=== PATIENT | male | born 1965 | race Hispanic/Latino ===

== ENCOUNTER 2020-12-16 09:00 | Inpatient (IN) | payer OTHER ==
[~2020-12-16] VITALS: Ht 170.2 cm; Wt 97.2 kg
[2020-12-16 09:50] LABS: BASOPHILS % (AUTO) 0.6 % (0.0-5.0); EOSINOPHILS % (AUTO) 10.7 % (0.0-8.0); HEMATOCRIT 41.5 % (42-54); LYMPHOCYTES % (AUTO) 26.9 % (21.0-51.0); MEAN CORPUSCULAR HEMOGLOBIN 33.3 pg (27.0-33.0); MEAN CORPUSCULAR HGB CONC 35.2 g/dL (32.0-36.0); MEAN CORPUSCULAR VOLUME 94.7 fL (79-99); MONOCYTES % (AUTO) 9.5 % (3.0-13.0); NEUTROPHILS % (AUTO) 51.9 % (40.0-77.0); PLATELET COUNT (AUTO) 197 K/uL (130-400); RED BLOOD CELL COUNT(AUTO) 4.38 MIL/uL (4.50-6.20); RED CELL DISTRIBUTION WIDTH 13.7 % (11.0-15.5); WHITE BLOOD COUNT (AUTO) 8.1 K/uL (4.8-10.8)
[2020-12-16 09:55] LABS: APPEARANCE,URINE Clear (CLEAR); BILIRUBIN,URINE Negative (NEGATIVE); COLOR,URINE Yellow (YELLOW); GLUCOSE, URINE (UA) Negative (NEGATIVE); KETONES,URINE Negative (NEGATIVE); LEUKOCYTE ESTERASE ,URINE Negative (NEGATIVE); NITRATE,URINE Negative (NEGATIVE); OCCULT BLOOD,URINE Negative (NEGATIVE); PH,URINE 6.5 (5.0-8.0); PROTEIN,URINE Negative (NEGATIVE)
[2020-12-16 09:58] LABS: CREATININE 1.2 mg/dL (0.5-1.5)
[2020-12-16 10:01] LABS: INR 0.96 (0.85-1.15); PROTHROMBIN TIME 10.5 SEC (9.6-11.6)
[2020-12-20 08:55] VITALS: BP 125/79
[2020-12-20] MEDS ORDERED: ALLO300T2 PO (10:12)
[2020-12-20] MEDS ORDERED: CLOP75TA32 PO (10:12)
[2020-12-20] MEDS ORDERED: IBUP-2077 PO (10:12)
[2020-12-20] MEDS ORDERED: SIMV-43 PO (10:12)
[2020-12-20] MEDS ORDERED: AEC81 PO (10:12)
[2020-12-20] MEDS ORDERED: LISI1TAB51 PO (10:12)
[2020-12-20] MEDS ORDERED: ACET1TAB25 PO (10:12)
[2020-12-21] VITALS (22 sets, daily range): BP systolic 89–117; BP diastolic 51–77
[2020-12-21] MEDS ORDERED: LACTATED RINGERS 1000ML 1,000 ML IV ONE (10:39)
[2020-12-21] MEDS: CLINDAMYCIN 900 MG/D5% WATER 50 ML IV SCH ×2 (11:00→16:47)
[2020-12-21] MEDS ORDERED: PROPOFOL 10 MG/ML 20ML VIAL IV ONE (13:45)
[2020-12-21] MEDS ORDERED: SUCCINYLCHOLINE CHLORIDE 20 MG/ML 10 ML VIAL ONE (13:45)
[2020-12-21] MEDS ORDERED: LIDOCAINE PF 2% 5ML ABBOJECT ONE (13:45)
[2020-12-21] MEDS ORDERED: ROCURONIUM 10MG/1ML SYR 10 MG/ML ML ONE ×2 (13:46→17:28)
[2020-12-21] MEDS ORDERED: ROPIVACAINE 0.5% 5MG/ML 30ML IJ ONE (13:49)
[2020-12-21] MEDS ORDERED: METOCLOPRAMIDE 10 MG/2 ML VIAL ONE (14:09)
[2020-12-21] MEDS ORDERED: ACETAMINOPHEN EXTRA STRENGTH 500 MG TABLET ONE (14:09)
[2020-12-21] MEDS ORDERED: CELECOXIB 200 MG CAP ONE (14:10)
[2020-12-21] MEDS ORDERED: CLINDAMYCIN PHOSPHATE 150 MG/ML 6ML VIAL ONE (14:52)
[2020-12-21] MEDS ORDERED: FENTANYL CITRATE PF 50 MCG/1 ML 2ML VIAL ONE ×2 (16:36→19:11)
[2020-12-21] MEDS ORDERED: MIDAZOLAM HCL 1 MG/ML 2ML VIAL ONE (16:36)
[2020-12-21] MEDS ORDERED: EPHEDRINE SULFATE 50 MG/ML AMPULE ONE (16:56)
[2020-12-21] MEDS ORDERED: CLINDAMYCIN PHOSPHATE 150 MG/ML 6ML VIAL IJ ONE (17:29)
[2020-12-21] MEDS ORDERED: PHENYLEPHRINE HCL 10 MG/ML 1ML VIAL IV ONE (18:50)
[2020-12-21] MEDS ORDERED: ONDANSETRON HCL 4 MG/2 ML VIAL ONE (18:58)
[2020-12-21] MEDS ORDERED: NEOSTIGMINE 5MG/5ML SYR IV ONE (18:58)
[2020-12-21] MEDS ORDERED: GLYCOPYRROLATE 1 MG/5 ML SYRINGE ONE (18:58)
[2020-12-21] MEDS: ACETAMINOPHEN EXTRA STRENGTH 500 MG TABLET PO SCH (19:15)
[2020-12-21] MEDS ORDERED: LIDOCAINE HCL-MPF 1% 2ML VIAL IV PRN (19:15)
[2020-12-21] MEDS ORDERED: POTASSIUM CHLORIDE 20MEQ/100ML 100 ML IV PRN (19:15)
[2020-12-21] MEDS ORDERED: FERROUS FUMARATE 324 MG TABLET PO PRN (19:15)
[2020-12-21] MEDS ORDERED: POTASSIUM CHLORIDE 20 MEQ ERTAB PO PRN (19:15)
[2020-12-21] MEDS ORDERED: ONDANSETRON HCL 4 MG/2 ML VIAL IVP PRN (19:15)
[2020-12-21] MEDS: SODIUM CHLORIDE 0.9% 1000ML 1,000 ML IV SCH (19:15)
[2020-12-21] MEDS ORDERED: OXYCODONE HCL 5 MG TAB PO PRN (19:15)
[2020-12-21] MEDS ORDERED: POTASSIUM CHLORIDE 10% ELIXIR 20 MEQ/15 ML UDCUP PO PRN (19:15)
[2020-12-21] MEDS ORDERED: TEMAZEPAM 15 MG CAPSULE PO PRN (19:15)
[2020-12-21] MEDS ORDERED: DiphenhydrAMINE HCL 50 MG/ML VIAL IVP PRN (19:15)
[2020-12-21] MEDS ORDERED: MEPERIDINE-PF 25 MG/ML SYG ONE ×2 (20:14→20:25)
[2020-12-21] MEDS: CELECOXIB 200 MG CAP PO SCH (21:40)
[2020-12-21] MEDS: FAMOTIDINE 20MG TAB 20 MG TAB PO SCH (21:40)
[2020-12-21] MEDS: PREGABALIN 25 MG CAP PO SCH (21:40)
[2020-12-21] MEDS: SIMVASTATIN 20 MG TABLET PO SCH (21:57)
[2020-12-21] MEDS: CLINDAMYCIN 900 MG/D5% WATER 50 ML IVPB SCH (23:37)
[2020-12-22] VITALS: BP 98/69
[2020-12-22] MEDS: ACETAMINOPHEN EXTRA STRENGTH 500 MG TABLET PO SCH ×3 (02:16→20:29)
[2020-12-22 03:59] LABS: HEMATOCRIT 36.4 % (42-54); MEAN CORPUSCULAR HEMOGLOBIN 33.2 pg (27.0-33.0); MEAN CORPUSCULAR HGB CONC 33.8 g/dL (32.0-36.0); MEAN CORPUSCULAR VOLUME 98.1 fL (79-99); RED BLOOD CELL COUNT(AUTO) 3.71 MIL/uL (4.50-6.20); RED CELL DISTRIBUTION WIDTH 13.8 % (11.0-15.5); WHITE BLOOD COUNT (AUTO) 14.4 K/uL (4.8-10.8)
[2020-12-22 04:07] LABS: CREATININE 2.5 mg/dL (0.5-1.5); POTASSIUM 4.1 mmol/L (3.5-5.1)
[2020-12-22] MEDS: SODIUM CHLORIDE 0.9% 1000ML 1,000 ML IV SCH ×2 (04:16→15:15)
[2020-12-22] MEDS: OXYCODONE HCL 5 MG TAB PO PRN ×2 (05:12→23:48)
[2020-12-22] MEDS: TRAMADOL HCL 50 MG TABLET PO PRN (07:40)
[2020-12-22 08:00] VITALS: BP 103/66
[2020-12-22] MEDS ORDERED: CLOPIDOGREL BISULFATE 75 MG TAB PO SCH (09:00)
[2020-12-22] MEDS: HYDROCHLOROTHIAZIDE 25 MG TABLET PO SCH (09:00)
[2020-12-22] MEDS: LISINOPRIL 20 MG TABLET PO SCH (09:00)
[2020-12-22] MEDS: CLINDAMYCIN 900 MG/D5% WATER 50 ML IVPB SCH (09:50)
[2020-12-22] MEDS: ALLOPURINOL 300 MG TABLET PO SCH (09:52)
[2020-12-22] MEDS: FAMOTIDINE 20MG TAB 20 MG TAB PO SCH ×2 (09:52→20:30)
[2020-12-22] MEDS: HYDROMORPHONE 1 MG/1 ML AMP IVP PRN ×2 (09:52→20:31)
[2020-12-22] MEDS: ASPIRIN 81 MG EC TAB PO SCH (09:54)
[2020-12-22] MEDS: TAMSULOSIN HCL 0.4 MG CAP.ER.24H PO SCH (09:55)
[2020-12-22] MEDS: PREGABALIN 25 MG CAP PO SCH ×2 (09:55→20:30)
[2020-12-22] MEDS: CELECOXIB 200 MG CAP PO SCH ×2 (09:55→20:30)
[2020-12-22] MEDS: APIXABAN 2.5 MG TABLET PO SCH ×2 (09:55→20:30)
[2020-12-22] MEDS: POLYETHYLENE GLYCOL 3350 17 GM POWD.PACK PO SCH (10:02)
[2020-12-22 12:00] VITALS: BP 99/67
[2020-12-22 16:00] VITALS: BP 107/59
[2020-12-22] MEDS: CALCIUM CARBONATE 500 MG TABLET PO PRN (16:41)
[2020-12-22 20:00] VITALS: BP 112/66
[2020-12-22] MEDS: SIMVASTATIN 20 MG TABLET PO SCH (20:30)
[2020-12-22 23:55] VITALS: BP 100/67
[2020-12-23] MEDS: CALCIUM CARBONATE 500 MG TABLET PO PRN (03:25)
[2020-12-23] MEDS: ACETAMINOPHEN EXTRA STRENGTH 500 MG TABLET PO SCH ×3 (03:26→20:09)
[2020-12-23 04:10] LABS: HEMATOCRIT 31.4 % (42-54); MEAN CORPUSCULAR HEMOGLOBIN 32.4 pg (27.0-33.0); MEAN CORPUSCULAR HGB CONC 33.8 g/dL (32.0-36.0); RED BLOOD CELL COUNT(AUTO) 3.27 MIL/uL (4.50-6.20); RED CELL DISTRIBUTION WIDTH 13.7 % (11.0-15.5); WHITE BLOOD COUNT (AUTO) 9.5 K/uL (4.8-10.8)
[2020-12-23 04:27] VITALS: BP 126/72
[2020-12-23] MEDS: FAMOTIDINE 20MG TAB 20 MG TAB PO SCH ×2 (07:57→20:08)
[2020-12-23] MEDS: CELECOXIB 200 MG CAP PO SCH ×2 (07:57→20:08)
[2020-12-23] MEDS: HYDROCHLOROTHIAZIDE 25 MG TABLET PO SCH ×2 (07:57→09:00)
[2020-12-23] MEDS: PREGABALIN 25 MG CAP PO SCH ×2 (07:57→20:08)
[2020-12-23] MEDS: LISINOPRIL 20 MG TABLET PO SCH ×2 (07:57→09:00)
[2020-12-23] MEDS: TAMSULOSIN HCL 0.4 MG CAP.ER.24H PO SCH (07:58)
[2020-12-23] MEDS: POLYETHYLENE GLYCOL 3350 17 GM POWD.PACK PO SCH (07:58)
[2020-12-23] MEDS: APIXABAN 2.5 MG TABLET PO SCH ×2 (07:58→20:08)
[2020-12-23] MEDS: ALLOPURINOL 300 MG TABLET PO SCH (07:58)
[2020-12-23] MEDS: ASPIRIN 81 MG EC TAB PO SCH (07:58)
[2020-12-23] MEDS: HYDROMORPHONE 1 MG/1 ML AMP IVP PRN (07:59)
[2020-12-23 08:00] VITALS: BP 112/66
[2020-12-23 11:28] VITALS: BP 115/69
[2020-12-23 17:00] VITALS: BP 115/70
[2020-12-23] MEDS: KETOROLAC TROMETHAMINE 15MG/ML IV PRN ×2 (17:09→23:14)
[2020-12-23 19:34] VITALS: BP 101/60
[2020-12-23] MEDS: SIMVASTATIN 20 MG TABLET PO SCH (20:08)
[2020-12-23 23:32] VITALS: BP 124/75
[2020-12-24] MEDS: ACETAMINOPHEN EXTRA STRENGTH 500 MG TABLET PO SCH ×2 (03:50→19:46)
[2020-12-24 04:00] VITALS: BP_SYST 115; BP_SYST 142; BP_DIAS 53; BP_DIAS 67
[2020-12-24 08:00] VITALS: BP 112/73
[2020-12-24] MEDS: PREGABALIN 25 MG CAP PO SCH ×2 (08:45→19:45)
[2020-12-24] MEDS: TAMSULOSIN HCL 0.4 MG CAP.ER.24H PO SCH (08:45)
[2020-12-24] MEDS: ASPIRIN 81 MG EC TAB PO SCH (08:45)
[2020-12-24] MEDS: CELECOXIB 200 MG CAP PO SCH ×2 (08:45→19:45)
[2020-12-24] MEDS: FAMOTIDINE 20MG TAB 20 MG TAB PO SCH ×2 (08:45→19:46)
[2020-12-24] MEDS: ALLOPURINOL 300 MG TABLET PO SCH (08:45)
[2020-12-24] MEDS: HYDROCHLOROTHIAZIDE 25 MG TABLET PO SCH (08:46)
[2020-12-24] MEDS: POLYETHYLENE GLYCOL 3350 17 GM POWD.PACK PO SCH (08:46)
[2020-12-24] MEDS: KETOROLAC TROMETHAMINE 15MG/ML IV PRN ×3 (08:46→22:23)
[2020-12-24] MEDS: APIXABAN 2.5 MG TABLET PO SCH ×2 (08:46→19:45)
[2020-12-24] MEDS: LISINOPRIL 20 MG TABLET PO SCH (08:47)
[2020-12-24 11:00] VITALS: BP 120/72
[2020-12-24 16:38] VITALS: BP 130/79
[2020-12-24 19:00] VITALS: BP 139/85
[2020-12-24] MEDS ORDERED: BISACODYL 10 MG SUPP.RECT RC PRN (19:15)
[2020-12-24] MEDS: SIMVASTATIN 20 MG TABLET PO SCH (19:46)
[2020-12-25] VITALS (7 sets, daily range): BP systolic 124–164; BP diastolic 78–98
[2020-12-25] MEDS: ACETAMINOPHEN EXTRA STRENGTH 500 MG TABLET PO SCH ×3 (05:34→21:45)
[2020-12-25] MEDS: ALLOPURINOL 300 MG TABLET PO SCH (07:58)
[2020-12-25] MEDS: ASPIRIN 81 MG EC TAB PO SCH (07:58)
[2020-12-25] MEDS: PREGABALIN 25 MG CAP PO SCH ×2 (07:59→21:47)
[2020-12-25] MEDS: APIXABAN 2.5 MG TABLET PO SCH ×2 (07:59→21:43)
[2020-12-25] MEDS: TAMSULOSIN HCL 0.4 MG CAP.ER.24H PO SCH (07:59)
[2020-12-25] MEDS: FAMOTIDINE 20MG TAB 20 MG TAB PO SCH ×2 (07:59→21:00)
[2020-12-25] MEDS: TRAMADOL HCL 50 MG TABLET PO PRN (07:59)
[2020-12-25] MEDS: CELECOXIB 200 MG CAP PO SCH ×2 (07:59→21:47)
[2020-12-25] MEDS: POLYETHYLENE GLYCOL 3350 17 GM POWD.PACK PO SCH (08:10)
[2020-12-25] MEDS: LISINOPRIL 20 MG TABLET PO SCH (09:00)
[2020-12-25] MEDS: HYDROCHLOROTHIAZIDE 25 MG TABLET PO SCH (09:00)
[2020-12-25] MEDS: SIMVASTATIN 20 MG TABLET PO SCH (21:47)
[2020-12-26 03:56] VITALS: BP 139/83
[2020-12-26] MEDS: ACETAMINOPHEN EXTRA STRENGTH 500 MG TABLET PO SCH ×3 (06:14→20:36)
[2020-12-26 07:30] VITALS: BP 145/94
[2020-12-26] MEDS: TAMSULOSIN HCL 0.4 MG CAP.ER.24H PO SCH (09:00)
[2020-12-26] MEDS: ASPIRIN 81 MG EC TAB PO SCH (09:08)
[2020-12-26] MEDS: FAMOTIDINE 20MG TAB 20 MG TAB PO SCH ×2 (09:08→20:35)
[2020-12-26] MEDS: HYDROCHLOROTHIAZIDE 25 MG TABLET PO SCH (09:09)
[2020-12-26] MEDS: CELECOXIB 200 MG CAP PO SCH ×2 (09:09→20:35)
[2020-12-26] MEDS: APIXABAN 2.5 MG TABLET PO SCH ×2 (09:10→20:35)
[2020-12-26] MEDS: ALLOPURINOL 300 MG TABLET PO SCH (09:10)
[2020-12-26] MEDS: PREGABALIN 25 MG CAP PO SCH ×2 (09:11→20:35)
[2020-12-26] MEDS: LISINOPRIL 20 MG TABLET PO SCH (09:12)
[2020-12-26] MEDS: POLYETHYLENE GLYCOL 3350 17 GM POWD.PACK PO SCH (09:12)
[2020-12-26 11:00] VITALS: BP 141/91
[2020-12-26] MEDS: KETOROLAC TROMETHAMINE 15MG/ML IV PRN (14:10)
[2020-12-26 16:00] VITALS: BP 138/89
[2020-12-26 20:31] VITALS: BP 134/90
[2020-12-26] MEDS: SIMVASTATIN 20 MG TABLET PO SCH (20:35)
[2020-12-26] MEDS: CALCIUM CARBONATE 500 MG TABLET PO PRN (20:35)
[2020-12-26 23:37] VITALS: BP 141/79
[2020-12-27] MEDS ORDERED: TRAMADOL HCL 50 MG TABLET PO PRN (01:45)
[2020-12-27 04:23] VITALS: BP 136/80
[2020-12-27] MEDS: ACETAMINOPHEN EXTRA STRENGTH 500 MG TABLET PO SCH (05:51)
[2020-12-27 08:00] VITALS: BP 127/85
[2020-12-27] MEDS: ASPIRIN 81 MG EC TAB PO SCH (08:52)
[2020-12-27] MEDS: APIXABAN 2.5 MG TABLET PO SCH (08:53)
[2020-12-27] MEDS: FAMOTIDINE 20MG TAB 20 MG TAB PO SCH (08:54)
[2020-12-27] MEDS: LISINOPRIL 20 MG TABLET PO SCH (08:54)
[2020-12-27] MEDS: ALLOPURINOL 300 MG TABLET PO SCH (08:54)
[2020-12-27] MEDS: CELECOXIB 200 MG CAP PO SCH (08:54)
[2020-12-27] MEDS: PREGABALIN 25 MG CAP PO SCH (08:54)
[2020-12-27] MEDS: HYDROCHLOROTHIAZIDE 25 MG TABLET PO SCH (09:00)
[2020-12-27] MEDS: POLYETHYLENE GLYCOL 3350 17 GM POWD.PACK PO SCH (09:00)
[2020-12-27] MEDS: TAMSULOSIN HCL 0.4 MG CAP.ER.24H PO SCH (09:00)
[2020-12-27] MEDS ORDERED: HYDR-4060 PO (09:45)
[2020-12-27] MEDS ORDERED: APIX2.5T PO (09:45)
[2020-12-27 12:00] VITALS: BP 126/81
== END 2020-12-27 15:24 | DRG 468 ==
LOC: EDSTATUS 09:00 → DAHIP 12-21 09:52 → 4AH 12-21 20:39
PROVIDERS: ADMIT Orthopaedic Surgery; ATTEND Orthopaedic Surgery
PROC: 3E0T3BZ Introduction of Anesthetic Agent into Peripheral Nerves and Plexi, Percutaneous Approach (ICD-10-PCS; 2020-12-21)
PROC: 3E0T33Z Introduction of Anti-inflammatory into Peripheral Nerves and Plexi, Percutaneous Approach (ICD-10-PCS; 2020-12-21)
PROC: 0SR906Z Replacement of Right Hip Joint with Oxidized Zirconium on Polyethylene Synthetic Substitute, Open Approach (ICD-10-PCS; principal; 2020-12-21 16:12)
PROC: 0SP90JZ Removal of Synthetic Substitute from Right Hip Joint, Open Approach (ICD-10-PCS; 2020-12-21 16:12)
DX: M16.11 Unilateral primary osteoarthritis, right hip (principal); M10.9 Gout, unspecified; D64.9 Anemia, unspecified; N99.89 Other postprocedural complications and disorders of genitourinary system; I10 Essential (primary) hypertension; E03.9 Hypothyroidism, unspecified; E78.00 Pure hypercholesterolemia, unspecified; Z20.822 Contact with and (suspected) exposure to COVID-19; I25.2 Old myocardial infarction; Z88.0 Allergy status to penicillin; I69.319 Unspecified symptoms and signs involving cognitive functions following cerebral infarction
CPT/HCPCS: 36415; 73503; 80048; 81003; 85025; 85027; 85610; 86850; 86900; 86901; 87641; 97039; G0378; J0330; J1170; J1885; J2001; J2175; J2250; J2370; J2405; J2704; J2710; J2765; J2795; J3010; J3490; J7120; U0003